=== PATIENT | female | born 1945 | race Caucasian/White ===

== ENCOUNTER 2018-09-22 11:43 | Inpatient (IN) | payer MEDICARE, OTHER ==
[~2018-09-22] VITALS: Ht 160 cm; Wt 89.0 kg
[2018-09-22] MEDS ORDERED: normal saline 1000ML IV soln IVB ONE (12:15)
[2018-09-22] MEDS ORDERED: ondansetron/PF 4mg/2ml inj IV ONE (12:15)
[2018-09-22] MEDS ORDERED: acetaminophen 325mg tablet PO ONE (12:15)
[2018-09-22 13:10] LABS: ALANINE AMINOTRANSFERASE 30 U/L (12-78); ALBUMIN 3.3 G/DL (3.4-5.0); ALBUMIN/GLOBULIN RATIO 0.7 (1.1-1.5); ALKALINE PHOSPHATASE 82 IU/L (46-116); ANION GAP 10 (8-16); ASPARTATE AMINO TRANSFERASE 25 U/L (10-37); BILIRUBIN,TOTAL 0.7 MG/DL (0.1-1.0); BLOOD UREA NITROGEN 30 MG/DL (7-18); BUN/CREATININE RATIO 32.6 (6.6-38.0); CALCIUM 10.3 MG/DL (8.5-10.1); CHLORIDE 100 MMOL/L (99-107); CREATININE 0.92 MG/DL (0.40-0.90); GLUCOSE 274 MG/DL (70-104); POTASSIUM 4.9 MMOL/L (3.5-5.1); SODIUM 136 MMOL/L (135-145); TOTAL CARBON DIOXIDE 26.1 MMOL/L (24-32); TOTAL PROTEIN 7.8 G/DL (6.4-8.2); eGFR 60 ML/MIN
[2018-09-22 13:11] LABS: MAGNESIUM 1.7 MG/DL (1.5-2.4); TROPONIN I < 0.04 NG/ML (0.0-0.05)
[2018-09-22] MEDS ORDERED: normal saline 1000ml 1,000 ML IV ONE (13:15)
[2018-09-22 13:21] LABS: INR 1.1 INR; PROTHROMBIN TIME 11.4 SECONDS (9.0-12.0)
[2018-09-22 13:46] LABS: BASOPHILS # (AUTO) 0.1 X10'3 (0-0.2); BASOPHILS % (AUTO) 1.1 % (0-1); EOSINOPHILS # (AUTO) 0.2 X10'3 (0-0.9); EOSINOPHILS % (AUTO) 1.8 % (0-6); HEMATOCRIT 25.8 % (35.0-45.0); HEMOGLOBIN 8.4 g/dl (12.0-16.0); LYMPHOCYTES % (AUTO) 8.1 % (21-51); MEAN CORPUSCULAR HEMOGLOBIN 30.6 PG (27.0-31.0); MEAN CORPUSCULAR HGB CONC 32.7 % (33.0-36.5); MEAN CORPUSCULAR VOLUME 93.5 FL (78-98); MONOCYTES # (AUTO) 0.8 X10'3 (0-0.9); MONOCYTES % (AUTO) 6.7 % (2-12); NEUTROPHILS # (AUTO) 10.3 X10'3 (1.8-7.7); NEUTROPHILS % (AUTO) 82.3 % (42-75); PLATELET COUNT 281 X10'3 (140-440); RED BLOOD COUNT 2.76 X10'6 (4.20-5.60); RED CELL DISTRIBUTION WIDTH 15.3 % (11.5-14.5); WHITE BLOOD COUNT 12.5 X10'3 (4.5-11.0)
[2018-09-22] MEDS ORDERED: HYDROcodone/acetaminophen 10/325mg tab PO ONE (15:00)
[2018-09-22 15:18] LABS: CLARITY,URINE CLEAR (Clear); COLOR,URINE YELLOW (Yellow); GLUCOSE, URINE 250 mg/dl (Neg); KETONES,URINE NEGATIVE (Neg); LEUKOCYTE ESTERASE ,URINE NEGATIVE (Neg); NITRITES, URINE NEGATIVE (Neg); OCCULT BLOOD,URINE NEGATIVE (Neg); PH,URINE 5.5 (4.8-8.0); PROTEIN,URINE NEGATIVE (Neg); UROBILINOGEN,URINE 0.2 E.U/dL (0.2-1.0)
[2018-09-22 15:31] LABS: UA COLLECTION TYPE CLN CATCH MIDSTREAM
[2018-09-22] MEDS: piperacillin/tazo 3.375gm/50ml 50 ML IV SCH ×2 (16:07→20:08)
[2018-09-22] MEDS ORDERED: pantoprazole 40 MG vial IV ONE (16:50)
[2018-09-22] MEDS: pantoprazole 40MG/NS 100ML BAG 100 ML IV SCH ×2 (17:04→23:50)
[2018-09-22] MEDS ORDERED: iohexol 350MG/ML 100ml bottle IV ONE (17:34)
[2018-09-22] MEDS ORDERED: morphine 4 MG/ML inj SYRINge IV ONE (17:45)
[2018-09-22] MEDS: MESSAGE TO NURSING PO SCH (18:00)
[2018-09-22] MEDS ORDERED: PANT40TA4 PO (18:30)
[2018-09-22] MEDS ORDERED: CARV3.12 PO (18:30)
[2018-09-22] MEDS ORDERED: AMLO5TAB16 PO (18:30)
[2018-09-22] MEDS ORDERED: HYDR-3972 PO (18:30)
[2018-09-22] MEDS ORDERED: LEVO75TA PO (18:30)
[2018-09-22] MEDS ORDERED: METF-950 PO (18:30)
[2018-09-22] MEDS ORDERED: ZOLP10TA5 PO (18:30)
[2018-09-22] MEDS: normal saline 1000ml 1,000 ML IV SCH (20:59)
[2018-09-22] MEDS ORDERED: HYDROmorphone 1 mg/ml syringe IV PRN (21:00)
[2018-09-22] MEDS ORDERED: mag hydrox/Alum hydrox/simeth 30ml oral suspension PO PRN (21:00)
[2018-09-22] MEDS ORDERED: bisacodyl 10mg suppository rectal RC PRN (21:00)
[2018-09-22] MEDS ORDERED: temazepam 15mg capsule PO PRN (21:00)
[2018-09-22] MEDS ORDERED: HYDROcodone/acetaminophen 10/325mg tab PO PRN (21:00)
[2018-09-22] MEDS ORDERED: magnesium hydroxide 30ml (MOM) UD suspension PO PRN (21:00)
[2018-09-22] MEDS ORDERED: diphenhydrAMINE 50 mg/ml inj IV PRN (21:00)
[2018-09-22] MEDS ORDERED: acetaminophen 325mg tablet PO PRN ×2 (21:00)
[2018-09-22] MEDS ORDERED: acetaminophen 650mg rectal suppository RC PRN (21:00)
[2018-09-22] MEDS: zolpidem 5mg tablet PO SCH (21:00)
[2018-09-22] MEDS ORDERED: diphenhydrAMINE 25mg capsule PO PRN (21:00)
[2018-09-22] MEDS ORDERED: metoclopramide 5 mg/ml inj IV PRN (21:00)
[2018-09-22] MEDS ORDERED: dextrose 50%-water 50ml dispensing syringe IV PRN ×2 (21:05)
[2018-09-22] MEDS ORDERED: insulin Lispro (HumaLOG) vial - multi-dose SQ SCH (21:05)
[2018-09-22] MEDS ORDERED: dextrose ORAL solution 15 GM/59 ML bottle PO PRN ×2 (21:05)
[2018-09-22] MEDS ORDERED: hydrALAZINE 20mg/ml inj. IV PRN (21:05)
[2018-09-22] MEDS ORDERED: glucagon, human recombinant 1mg kit SUBCUT PRN (21:05)
[2018-09-22] MEDS ORDERED: MESSAGE TO PHARMACY PO ONE (21:05)
[2018-09-22 21:21] LABS: LIPASE 109 U/L (73-393)
[2018-09-22 21:52] LABS: HEMOGLOBIN A1C 6.4 % (4.5-6.2)
[2018-09-22 21:58] LABS: INR 1.2 INR; PARTIAL THROMBOPLASTIN TIME 23 SECONDS (22-32); PROTHROMBIN TIME 11.6 SECONDS (9.0-12.0)
[2018-09-22 22:08] LABS: PHOSPHORUS 1.8 MG/DL (2.3-4.5)
[2018-09-22] MEDS: morphine 2 MG/ML inj. syringe IV PRN (23:05)
[2018-09-23] VITALS (13 sets, daily range): BP systolic 110–161; BP diastolic 43–75
[2018-09-23] MEDS: pantoprazole 40MG/NS 100ML BAG 100 ML IV SCH ×2 (01:00→04:13)
[2018-09-23] MEDS: piperacillin/tazo 3.375gm/50ml 50 ML IV SCH ×4 (02:57→21:26)
[2018-09-23] MEDS: ondansetron/PF 4mg/2ml inj IV PRN (04:08)
[2018-09-23] MEDS: morphine 2 MG/ML inj. syringe IV PRN (04:09)
[2018-09-23 05:29] LABS: ALANINE AMINOTRANSFERASE 21 U/L (12-78); ALBUMIN 2.8 G/DL (3.4-5.0); ALBUMIN/GLOBULIN RATIO 0.8 (1.1-1.5); ALKALINE PHOSPHATASE 59 IU/L (46-116); ANION GAP 8 (8-16); ASPARTATE AMINO TRANSFERASE 19 U/L (10-37); BILIRUBIN,TOTAL 0.4 MG/DL (0.1-1.0); BLOOD UREA NITROGEN 25 MG/DL (7-18); BUN/CREATININE RATIO 28.7 (6.6-38.0); CALCIUM 8.7 MG/DL (8.5-10.1); CHLORIDE 106 MMOL/L (99-107); CHOLESTEROL 143 MG/DL (0-200); CREATININE 0.87 MG/DL (0.40-0.90); GLUCOSE 134 MG/DL (70-104); HDL CHOLESTEROL 24 MG/DL (35-60); POTASSIUM 3.8 MMOL/L (3.5-5.1); SODIUM 140 MMOL/L (135-145); TOTAL CARBON DIOXIDE 25.8 MMOL/L (24-32); TOTAL PROTEIN 6.2 G/DL (6.4-8.2); TRIGLYCERIDES 177 MG/DL (20-135); eGFR 64 ML/MIN
[2018-09-23 06:13] LABS: BASOPHILS # (AUTO) 0.2 X10'3 (0-0.2); BASOPHILS % (AUTO) 1.3 % (0-1); EOSINOPHILS # (AUTO) 0.1 X10'3 (0-0.9); EOSINOPHILS % (AUTO) 0.4 % (0-6); HEMATOCRIT 22.2 % (35.0-45.0); HEMOGLOBIN 7.2 g/dl (12.0-16.0); LYMPHOCYTES # (AUTO) 2.3 X10'3 (1.1-4.8); LYMPHOCYTES % (AUTO) 15.5 % (21-51); MEAN CORPUSCULAR HEMOGLOBIN 30.2 PG (27.0-31.0); MEAN CORPUSCULAR HGB CONC 32.4 % (33.0-36.5); MEAN CORPUSCULAR VOLUME 93.2 FL (78-98); MONOCYTES # (AUTO) 1.7 X10'3 (0-0.9); MONOCYTES % (AUTO) 11.8 % (2-12); NEUTROPHILS # (AUTO) 10.4 X10'3 (1.8-7.7); PLATELET COUNT 265 X10'3 (140-440); RED BLOOD COUNT 2.38 X10'6 (4.20-5.60); RED CELL DISTRIBUTION WIDTH 15.3 % (11.5-14.5); WHITE BLOOD COUNT 14.7 X10'3 (4.5-11.0)
[2018-09-23 06:22] LABS: LDL CHOLESTEROL 94 MG/DL (50-100)
[2018-09-23] MEDS: normal saline 1000ml 1,000 ML IV SCH ×2 (06:59→17:39)
[2018-09-23 09:04] LABS: OCCULT BLOOD STOOL NEGATIVE (Neg)
[2018-09-23] MEDS: pantoprazole 40 MG vial IV SCH ×2 (09:10→21:26)
[2018-09-23] MEDS: HYDROcodone/acetaminophen 10/325mg tab PO PRN ×4 (09:10→21:32)
[2018-09-23] MEDS: Neutra Phos packet PO SCH ×3 (09:10→21:27)
[2018-09-23] MEDS: carVEDilol 3.125mg tablet PO SCH (09:10)
[2018-09-23] MEDS: amLODIPine 5mg tablet PO SCH (09:10)
[2018-09-23] MEDS: levoTHYROXINE 75mcg tablet PO SCH (09:10)
[2018-09-23] MEDS: docusate sod 100mg capsule PO SCH ×2 (09:10→21:27)
[2018-09-23] MEDS ORDERED: fentaNYL/PF 50MCG/1 ML 2ML syringe ONE (13:29)
[2018-09-23] MEDS ORDERED: MIDAZolam 5mg/5ml vial ONE (13:29)
[2018-09-23] MEDS ORDERED: LIDOcaine Viscous 15ml cup ONE (13:29)
[2018-09-23] MEDS: MESSAGE TO NURSING PO SCH (17:40)
[2018-09-23] MEDS: zolpidem 5mg tablet PO SCH (21:27)
[2018-09-24] VITALS (13 sets, daily range): BP systolic 94–136; BP diastolic 41–68
[2018-09-24] MEDS: piperacillin/tazo 3.375gm/50ml 50 ML IV SCH ×3 (02:31→15:33)
[2018-09-24] MEDS: HYDROcodone/acetaminophen 10/325mg tab PO PRN ×3 (02:57→17:59)
[2018-09-24] MEDS: normal saline 1000ml 1,000 ML IV SCH ×2 (02:59→15:57)
[2018-09-24 05:19] LABS: BASOPHILS # (AUTO) 0.1 X10'3 (0-0.2); BASOPHILS % (AUTO) 0.8 % (0-1); EOSINOPHILS # (AUTO) 0.2 X10'3 (0-0.9); EOSINOPHILS % (AUTO) 2.8 % (0-6); LYMPHOCYTES # (AUTO) 1.4 X10'3 (1.1-4.8); MEAN CORPUSCULAR HEMOGLOBIN 30.6 PG (27.0-31.0); MEAN CORPUSCULAR HGB CONC 32.8 % (33.0-36.5); MEAN CORPUSCULAR VOLUME 93.3 FL (78-98); MEAN PLATELET VOLUME 9.4 FL (7.4-10.4); MONOCYTES # (AUTO) 0.6 X10'3 (0-0.9); MONOCYTES % (AUTO) 6.8 % (2-12); NEUTROPHILS % (AUTO) 72.6 % (42-75); PLATELET COUNT 204 X10'3 (140-440); RED BLOOD COUNT 1.97 X10'6 (4.20-5.60); RED CELL DISTRIBUTION WIDTH 15.9 % (11.5-14.5); WHITE BLOOD COUNT 8.2 X10'3 (4.5-11.0)
[2018-09-24 05:40] LABS: HEMATOCRIT 18.4 % (35.0-45.0)
[2018-09-24 05:47] LABS: ALANINE AMINOTRANSFERASE 18 U/L (12-78); ALBUMIN 2.9 G/DL (3.4-5.0); ALKALINE PHOSPHATASE 52 IU/L (46-116); ANION GAP 7 (8-16); ASPARTATE AMINO TRANSFERASE 21 U/L (10-37); BILIRUBIN,TOTAL 0.4 MG/DL (0.1-1.0); BLOOD UREA NITROGEN 13 MG/DL (7-18); BUN/CREATININE RATIO 14.1 (6.6-38.0); CALCIUM 8.3 MG/DL (8.5-10.1); CHLORIDE 107 MMOL/L (99-107); CREATININE 0.92 MG/DL (0.40-0.90); GLUCOSE 116 MG/DL (70-104); POTASSIUM 3.9 MMOL/L (3.5-5.1); SODIUM 142 MMOL/L (135-145); TOTAL CARBON DIOXIDE 28.3 MMOL/L (24-32); TOTAL PROTEIN 5.9 G/DL (6.4-8.2); eGFR 60 ML/MIN
[2018-09-24] MEDS: levoTHYROXINE 75mcg tablet PO SCH (08:04)
[2018-09-24] MEDS: docusate sod 100mg capsule PO SCH ×2 (08:04→20:36)
[2018-09-24] MEDS: amLODIPine 5mg tablet PO SCH (08:04)
[2018-09-24] MEDS: pantoprazole 40 MG vial IV SCH ×2 (08:04→20:36)
[2018-09-24] MEDS: carVEDilol 3.125mg tablet PO SCH (08:04)
[2018-09-24] MEDS: Neutra Phos packet PO SCH ×3 (08:05→20:36)
[2018-09-24] MEDS: ondansetron/PF 4mg/2ml inj IV PRN (08:10)
[2018-09-24] MEDS ORDERED: ipratropium/albuterol 3ml nebule NEB PRN (19:25)
[2018-09-24] MEDS: zolpidem 5mg tablet PO SCH (20:36)
[2018-09-24] MEDS: lactobacillus rhamnosus 10,000 MMU CELLS/CAPSULE PO SCH (20:36)
[2018-09-25] VITALS: BP 110/55
[2018-09-25] MEDS: HYDROcodone/acetaminophen 10/325mg tab PO PRN ×4 (02:17→21:02)
[2018-09-25 05:23] LABS: BASOPHILS # (AUTO) 0.1 X10'3 (0-0.2); BASOPHILS % (AUTO) 0.8 % (0-1); EOSINOPHILS # (AUTO) 0.3 X10'3 (0-0.9); EOSINOPHILS % (AUTO) 2.3 % (0-6); HEMATOCRIT 24.8 % (35.0-45.0); HEMOGLOBIN 8.2 g/dl (12.0-16.0); LYMPHOCYTES # (AUTO) 1.5 X10'3 (1.1-4.8); LYMPHOCYTES % (AUTO) 12.6 % (21-51); MEAN CORPUSCULAR HEMOGLOBIN 30.5 PG (27.0-31.0); MEAN CORPUSCULAR VOLUME 92.4 FL (78-98); MEAN PLATELET VOLUME 10.1 FL (7.4-10.4); MONOCYTES % (AUTO) 8.2 % (2-12); NEUTROPHILS # (AUTO) 9.3 X10'3 (1.8-7.7); NEUTROPHILS % (AUTO) 76.1 % (42-75); PLATELET COUNT 206 X10'3 (140-440); RED BLOOD COUNT 2.69 X10'6 (4.20-5.60); WHITE BLOOD COUNT 12.3 X10'3 (4.5-11.0)
[2018-09-25 05:32] LABS: ALANINE AMINOTRANSFERASE 18 U/L (12-78); ALBUMIN 2.9 G/DL (3.4-5.0); ALBUMIN/GLOBULIN RATIO 0.9 (1.1-1.5); ALKALINE PHOSPHATASE 55 IU/L (46-116); ANION GAP 5 (8-16); ASPARTATE AMINO TRANSFERASE 22 U/L (10-37); BILIRUBIN,TOTAL 0.6 MG/DL (0.1-1.0); BLOOD UREA NITROGEN 7 MG/DL (7-18); BUN/CREATININE RATIO 8.6 (6.6-38.0); CALCIUM 8.2 MG/DL (8.5-10.1); CHLORIDE 105 MMOL/L (99-107); CREATININE 0.81 MG/DL (0.40-0.90); GLUCOSE 120 MG/DL (70-104); POTASSIUM 3.5 MMOL/L (3.5-5.1); SODIUM 140 MMOL/L (135-145); TOTAL CARBON DIOXIDE 29.7 MMOL/L (24-32); TOTAL PROTEIN 6.2 G/DL (6.4-8.2); eGFR 70 ML/MIN
[2018-09-25 07:21] VITALS: BP 125/48
[2018-09-25] MEDS: Neutra Phos packet PO SCH ×3 (07:59→21:01)
[2018-09-25] MEDS: levoTHYROXINE 75mcg tablet PO SCH (07:59)
[2018-09-25] MEDS: pantoprazole 40 MG vial IV SCH ×2 (07:59→21:00)
[2018-09-25] MEDS: lactobacillus rhamnosus 10,000 MMU CELLS/CAPSULE PO SCH ×2 (07:59→21:00)
[2018-09-25] MEDS: amLODIPine 5mg tablet PO SCH (07:59)
[2018-09-25] MEDS: carVEDilol 3.125mg tablet PO SCH (07:59)
[2018-09-25] MEDS: docusate sod 100mg capsule PO SCH ×2 (07:59→20:00)
[2018-09-25 11:39] VITALS: BP 135/58
[2018-09-25 12:59] LABS: BASOPHILS % (AUTO) 0.4 % (0-1); EOSINOPHILS # (AUTO) 0.2 X10'3 (0-0.9); HEMATOCRIT 25.4 % (35.0-45.0); HEMOGLOBIN 8.4 g/dl (12.0-16.0); LYMPHOCYTES # (AUTO) 1.8 X10'3 (1.1-4.8); LYMPHOCYTES % (AUTO) 17.3 % (21-51); MEAN CORPUSCULAR HEMOGLOBIN 30.6 PG (27.0-31.0); MEAN CORPUSCULAR VOLUME 92.6 FL (78-98); MEAN PLATELET VOLUME 9.1 FL (7.4-10.4); MONOCYTES # (AUTO) 1.3 X10'3 (0-0.9); MONOCYTES % (AUTO) 12.3 % (2-12); PLATELET COUNT 205 X10'3 (140-440); RED BLOOD COUNT 2.74 X10'6 (4.20-5.60); RED CELL DISTRIBUTION WIDTH 15.8 % (11.5-14.5); WHITE BLOOD COUNT 10.3 X10'3 (4.5-11.0)
[2018-09-25 19:00] VITALS: BP 136/56
[2018-09-25] MEDS ORDERED: zolpidem 5mg tablet PO PRN (20:45)
[2018-09-26] VITALS: BP 131/63
[2018-09-26] MEDS: HYDROcodone/acetaminophen 10/325mg tab PO PRN (04:33)
[2018-09-26 05:02] LABS: BASOPHILS # (AUTO) 0.2 X10'3 (0-0.2); BASOPHILS % (AUTO) 1.5 % (0-1); EOSINOPHILS # (AUTO) 0.2 X10'3 (0-0.9); EOSINOPHILS % (AUTO) 2.1 % (0-6); HEMATOCRIT 26.6 % (35.0-45.0); HEMOGLOBIN 8.7 g/dl (12.0-16.0); LYMPHOCYTES # (AUTO) 1.6 X10'3 (1.1-4.8); LYMPHOCYTES % (AUTO) 14.9 % (21-51); MEAN CORPUSCULAR HEMOGLOBIN 30.7 PG (27.0-31.0); MEAN CORPUSCULAR HGB CONC 32.8 % (33.0-36.5); MEAN CORPUSCULAR VOLUME 93.5 FL (78-98); MEAN PLATELET VOLUME 9.9 FL (7.4-10.4); MONOCYTES # (AUTO) 1.2 X10'3 (0-0.9); MONOCYTES % (AUTO) 11.3 % (2-12); NEUTROPHILS # (AUTO) 7.4 X10'3 (1.8-7.7); NEUTROPHILS % (AUTO) 70.2 % (42-75); PLATELET COUNT 201 X10'3 (140-440); RED BLOOD COUNT 2.85 X10'6 (4.20-5.60); RED CELL DISTRIBUTION WIDTH 15.7 % (11.5-14.5); WHITE BLOOD COUNT 10.6 X10'3 (4.5-11.0)
[2018-09-26 05:20] LABS: ALANINE AMINOTRANSFERASE 16 U/L (12-78); ALBUMIN 2.9 G/DL (3.4-5.0); ALBUMIN/GLOBULIN RATIO 0.9 (1.1-1.5); ALKALINE PHOSPHATASE 60 IU/L (46-116); ANION GAP 6 (8-16); ASPARTATE AMINO TRANSFERASE 18 U/L (10-37); BILIRUBIN,TOTAL 0.5 MG/DL (0.1-1.0); BLOOD UREA NITROGEN 4 MG/DL (7-18); BUN/CREATININE RATIO 5.3 (6.6-38.0); CALCIUM 8.5 MG/DL (8.5-10.1); CHLORIDE 103 MMOL/L (99-107); CREATININE 0.75 MG/DL (0.40-0.90); GLUCOSE 127 MG/DL (70-104); POTASSIUM 3.5 MMOL/L (3.5-5.1); SODIUM 141 MMOL/L (135-145); TOTAL CARBON DIOXIDE 32.3 MMOL/L (24-32); TOTAL PROTEIN 6.3 G/DL (6.4-8.2); eGFR 76 ML/MIN
[2018-09-26 07:00] VITALS: BP 147/84
[2018-09-26] MEDS: docusate sod 100mg capsule PO SCH (07:42)
[2018-09-26] MEDS: carVEDilol 3.125mg tablet PO SCH (07:42)
[2018-09-26] MEDS: amLODIPine 5mg tablet PO SCH (07:42)
[2018-09-26] MEDS: pantoprazole 40 MG vial IV SCH (07:42)
[2018-09-26] MEDS: levoTHYROXINE 75mcg tablet PO SCH (07:42)
[2018-09-26] MEDS: Neutra Phos packet PO SCH (07:43)
[2018-09-26] MEDS: lactobacillus rhamnosus 10,000 MMU CELLS/CAPSULE PO SCH (07:43)
[2018-09-26] MEDS ORDERED: PANT40TA4 PO (12:20)
== END 2018-09-26 13:17 | disposition home or self-care (01) | DRG 388 ==
LOC: ER 11:43 → ED HOLD 20:59 → SUR 3N 22:30
PROVIDERS: ADMIT Family Medicine; ATTEND Internal Medicine
PROC: 0DB68ZX Excision of Stomach, Via Natural or Artificial Opening Endoscopic, Diagnostic (ICD-10-PCS; principal; 2018-09-23)
PROC: 30233N1 Transfusion of Nonautologous Red Blood Cells into Peripheral Vein, Percutaneous Approach (ICD-10-PCS; 2018-09-24)
PROC: B4201ZZ Computerized Tomography (CT Scan) of Abdominal Aorta using Low Osmolar Contrast (ICD-10-PCS; 2018-09-24)
PROC: B4241ZZ Computerized Tomography (CT Scan) of Superior Mesenteric Artery using Low Osmolar Contrast (ICD-10-PCS; 2018-09-24)
PROC: B4281ZZ Computerized Tomography (CT Scan) of Bilateral Renal Arteries using Low Osmolar Contrast (ICD-10-PCS; 2018-09-24)
PROC: B4211ZZ Computerized Tomography (CT Scan) of Celiac Artery using Low Osmolar Contrast (ICD-10-PCS; 2018-09-24)
DX: K56.609 Unspecified intestinal obstruction, unspecified as to partial versus complete obstruction (principal); K25.4 Chronic or unspecified gastric ulcer with hemorrhage; D62 Acute posthemorrhagic anemia; E87.2 Acidosis; E83.39 Other disorders of phosphorus metabolism; K31.84 Gastroparesis; K44.9 Diaphragmatic hernia without obstruction or gangrene; E11.43 Type 2 diabetes mellitus with diabetic autonomic (poly)neuropathy; E78.00 Pure hypercholesterolemia, unspecified; I10 Essential (primary) hypertension; I25.10 Atherosclerotic heart disease of native coronary artery without angina pectoris; J44.9 Chronic obstructive pulmonary disease, unspecified; K21.9 Gastro-esophageal reflux disease without esophagitis; M79.7 Fibromyalgia; Z90.710 Acquired absence of both cervix and uterus; Z95.1 Presence of aortocoronary bypass graft; Z88.1 Allergy status to other antibiotic agents; Z88.8 Allergy status to other drugs, medicaments and biological substances; Z79.899 Other long term (current) drug therapy; Z79.84 Long term (current) use of oral hypoglycemic drugs; Z87.11 Personal history of peptic ulcer disease; Z87.891 Personal history of nicotine dependence
CPT/HCPCS: 36415; 43239; 71045; 74174; 74176; 76937; 80053; 80061; 81003; 82272; 82948; 83036; 83605; 83690; 83735; 83880; 84100; 84443; 84484; 85025; 85610; 85730; 86885; 86900; 86901; 86920; 87070; 88305; 88312; 88342; 92616; 93005; 93975; 94760; 96361; 96374; 96375; 99152; 99285; A4620; C9113; G0378; J2250; J2270; J2405; J2543; J3010; J7030; P9016; Q9967

== ENCOUNTER 2018-11-20 14:03 | Inpatient (IN) | payer MEDICARE, OTHER | END 2018-11-25 14:30 | disposition home or self-care (01) | LOC: ER 14:03 → ED HOLD 16:52 → SUR 3N 20:35 | DX: A41.9 Sepsis, unspecified organism (principal); K92.2 Gastrointestinal hemorrhage, unspecified; D64.9 Anemia, unspecified; E11.9 Type 2 diabetes mellitus without complications; E86.0 Dehydration ==

== ENCOUNTER 2018-12-04 13:45 | Emergency (ER) | payer MEDICARE, OTHER ==
[~2018-12-04] VITALS: Ht 160 cm; Wt 83.0 kg
[~2018-12-04 13:45] MED LIST: AMLO5TAB16 PO; ASCO500C15 PO; CARV3.12 PO; CHOL100046 PO; FERR325T28 PO; HYDR-3972 PO; LACT10SO32 PO; LEVO75TA PO; METF-950 PO; NITR0.4T48 SL; PANT40TA4 PO; SUCR1TAB34 PO; ZOLP10TA5 PO
[2018-12-04 14:34] LABS: BASOPHILS # (AUTO) 0.1 X10'3 (0-0.2); BASOPHILS % (AUTO) 0.9 % (0-1); EOSINOPHILS # (AUTO) 0.2 X10'3 (0-0.9); HEMATOCRIT 35.4 % (35.0-45.0); HEMOGLOBIN 11.4 g/dl (12.0-16.0); LYMPHOCYTES # (AUTO) 1.1 X10'3 (1.1-4.8); LYMPHOCYTES % (AUTO) 15.7 % (21-51); MEAN CORPUSCULAR HEMOGLOBIN 27.6 PG (27.0-31.0); MEAN CORPUSCULAR HGB CONC 32.1 g/dL (33.0-36.5); MEAN CORPUSCULAR VOLUME 86.2 FL (78-98); MEAN PLATELET VOLUME 9.5 FL (7.4-10.4); MONOCYTES # (AUTO) 0.7 X10'3 (0-0.9); MONOCYTES % (AUTO) 10.3 % (2-12); NEUTROPHILS # (AUTO) 4.9 X10'3 (1.8-7.7); NEUTROPHILS % (AUTO) 70.1 % (42-75); PLATELET COUNT 389 X10'3 (140-440); RED BLOOD COUNT 4.11 X10'6 (4.20-5.60); RED CELL DISTRIBUTION WIDTH 17.5 % (11.5-14.5)
[2018-12-04 14:38] LABS: ALANINE AMINOTRANSFERASE 43 U/L (12-78); ALBUMIN 3.5 G/DL (3.4-5.0); ALBUMIN/GLOBULIN RATIO 0.8 (1.1-1.5); ALKALINE PHOSPHATASE 73 IU/L (46-116); ANION GAP 11 (8-16); ASPARTATE AMINO TRANSFERASE 50 U/L (10-37); BILIRUBIN,TOTAL 0.4 MG/DL (0.1-1.0); BLOOD UREA NITROGEN 11 MG/DL (7-18); BUN/CREATININE RATIO 12.5 (6.6-38.0); CALCIUM 9.4 MG/DL (8.5-10.1); CHLORIDE 99 MMOL/L (99-107); CREATININE 0.88 MG/DL (0.40-0.90); GLUCOSE 224 MG/DL (70-104); INR 1.1 INR; PARTIAL THROMBOPLASTIN TIME 27 SECONDS (22-32); POTASSIUM 3.9 MMOL/L (3.5-5.1); PROTHROMBIN TIME 10.8 SECONDS (9.0-12.0); SODIUM 137 MMOL/L (135-145); TOTAL CARBON DIOXIDE 27.3 MMOL/L (24-32); TOTAL PROTEIN 7.8 G/DL (6.4-8.2); eGFR 63 ML/MIN
[2018-12-04] MEDS ORDERED: ondansetron/PF 4mg/2ml inj IV ONE (14:40)
[2018-12-04 15:17] LABS: LIPASE 112 U/L (73-393)
[2018-12-04] MEDS ORDERED: iohexol 350MG/ML 100ml bottle IV ONE (16:02)
[2018-12-04 18:44] VITALS: BP 122/64
[2018-12-05] MEDS ORDERED: MESSAGE TO NURSING PO NR (10:00)
== END 2018-12-04 18:47 | disposition home or self-care (01) ==
LOC: ER 13:47
DX: R06.02 Shortness of breath (principal); R42 Dizziness and giddiness; R11.0 Nausea; E78.00 Pure hypercholesterolemia, unspecified; J44.9 Chronic obstructive pulmonary disease, unspecified; K21.9 Gastro-esophageal reflux disease without esophagitis; E11.9 Type 2 diabetes mellitus without complications; Z90.710 Acquired absence of both cervix and uterus; Z98.890 Other specified postprocedural states; Z88.5 Allergy status to narcotic agent; Z88.1 Allergy status to other antibiotic agents; Z88.8 Allergy status to other drugs, medicaments and biological substances; Z79.84 Long term (current) use of oral hypoglycemic drugs; Z79.899 Other long term (current) drug therapy; Z87.891 Personal history of nicotine dependence
CPT/HCPCS: 36415; 71045; 71275; 80053; 83690; 84484; 85025; 85610; 85730; 93005; 96374; 99284; J2405; Q9967

== ENCOUNTER 2020-04-09 09:08 | Day surgery (SDC) | payer MEDICARE ==
[2020-04-08 12:48] LABS: BASOPHILS # (AUTO) 0.2 X10'3 (0-0.2); BASOPHILS % (AUTO) 1.8 % (0-1); EOSINOPHILS # (AUTO) 0.2 X10'3 (0-0.9); EOSINOPHILS % (AUTO) 2.3 % (0-6); HEMATOCRIT 40.4 % (35.0-45.0); HEMOGLOBIN 13.4 g/dl (12.0-16.0); LYMPHOCYTES # (AUTO) 1.8 X10'3 (1.1-4.8); LYMPHOCYTES % (AUTO) 18.5 % (21-51); MEAN CORPUSCULAR HEMOGLOBIN 31.7 PG (27.0-31.0); MEAN CORPUSCULAR HGB CONC 33.3 g/dL (33.0-36.5); MEAN CORPUSCULAR VOLUME 95.2 FL (78-98); MEAN PLATELET VOLUME 9.7 FL (7.4-10.4); MONOCYTES % (AUTO) 10.1 % (2-12); NEUTROPHILS # (AUTO) 6.5 X10'3 (1.8-7.7); NEUTROPHILS % (AUTO) 67.3 % (42-75); PLATELET COUNT 268 X10'3 (140-440); RED BLOOD COUNT 4.24 X10'6 (4.20-5.60); RED CELL DISTRIBUTION WIDTH 13.7 % (11.5-14.5); WHITE BLOOD COUNT 9.7 X10'3 (4.5-11.0)
[2020-04-08 13:01] LABS: PARTIAL THROMBOPLASTIN TIME 27 SECONDS (22-32)
[2020-04-08 13:04] LABS: ALBUMIN 3.5 G/DL (3.4-5.0); ANION GAP 8 (8-16); BLOOD UREA NITROGEN 9 MG/DL (7-18); BUN/CREATININE RATIO 10.1 (6.6-38.0); CALCIUM 9.5 MG/DL (8.5-10.1); CHLORIDE 104 MMOL/L (99-107); CREATININE 0.89 MG/DL (0.40-0.90); GLUCOSE 125 MG/DL (70-104); POTASSIUM 4.5 MMOL/L (3.5-5.1); SODIUM 141 MMOL/L (135-145); TOTAL CARBON DIOXIDE 28.8 MMOL/L (24-32); eGFR 62 ML/MIN
[~2020-04-09] VITALS: Ht 160 cm; Wt 89.3 kg
[2020-04-09] VITALS (12 sets, daily range): BP systolic 130–176; BP diastolic 56–99
[~2020-04-09 09:08] MED LIST changes: -FERR325T28 PO
[2020-04-09] MEDS ORDERED: normal saline 1,000 ML IV SCH (09:25)
[2020-04-09] MEDS ORDERED: sodium bicarbonate (8.4%) inj. 150 ML in dextrose 5%-water 1,000 ML IV ONE (09:25)
[2020-04-09] MEDS ORDERED: LORazepam 0.5 MG tablet PO PRN (09:25)
[2020-04-09] MEDS ORDERED: diphenhydrAMINE 25mg capsule PO PRN (09:25)
[2020-04-09] MEDS ORDERED: iohexol 350 MG/ML 50ML vial IV ONE ×2 (09:59→11:05)
[2020-04-09] MEDS ORDERED: LIDOcaine 1% (10mg/ml)w/preservative injection 20ml MDV ONE (09:59)
[2020-04-09] MEDS ORDERED: iohexol 350MG/ML 100ml bottle IV ONE (09:59)
[2020-04-09] MEDS ORDERED: fentaNYL/PF 50MCG/1 ML 2ML syringe ONE (09:59)
[2020-04-09] MEDS ORDERED: heparin 1,000unit/ml 10ml vial 10 ML ONE (09:59)
[2020-04-09] MEDS ORDERED: midazolam 2 mg/2 ml injection ONE (09:59)
[2020-04-09] MEDS ORDERED: nitroGLYCERIN-Tridil 50MG/D5W 250 ML IV ONE (10:00)
[2020-04-09] MEDS ORDERED: LMFO1TAB PO (10:25)
[2020-04-09] MEDS ORDERED: PANT20TA2 PO (10:25)
[2020-04-09] MEDS ORDERED: CHOL400T57 PO (10:25)
[2020-04-09] MEDS ORDERED: HYDR-4353 PO (10:25)
[2020-04-09] MEDS ORDERED: ONDA8TAB6 PO (10:25)
[2020-04-09] MEDS ORDERED: THY60T PO (10:25)
[2020-04-09 11:56] LABS: ISTAT HGB ART 12.9 g/dl (12.0-16.0); ISTAT Hct ART 38 %PCV (35-48); ISTAT O2 SATURATION ARTERIAL 92 % (95-98); ISTAT SOURCE ART
[2020-04-09] MEDS ORDERED: proCHLORperazine 10 MG/2 ml inj IV PRN (12:15)
[2020-04-09] MEDS ORDERED: ondansetron/PF 4mg/2ml inj IV PRN (12:15)
[2020-04-09] MEDS ORDERED: HYDROcodone/acetaminophen 5mg/325mg tablet PO PRN (12:15)
--- NOTE | 2020-04-09 12:30 | NUR ---
clayton cath placed per MD orders
[2020-04-09] MEDS: HYDROcodone/acetaminophen 10/325mg tab PO PRN ×2 (13:00→16:32)
[2020-04-09] MEDS ORDERED: morphine 2 MG/ML inj. syringe IV ONE (17:40)
== END 2020-04-09 19:00 | disposition home or self-care (01) ==
LOC: SSTAY O 09:08
PROVIDERS: ATTEND Internal Medicine Cardiovascular Disease
DX: R94.39 Abnormal result of other cardiovascular function study (principal); I25.10 Atherosclerotic heart disease of native coronary artery without angina pectoris; E11.9 Type 2 diabetes mellitus without complications; I10 Essential (primary) hypertension; E78.5 Hyperlipidemia, unspecified; E66.9 Obesity, unspecified; Z68.34 Body mass index [BMI] 34.0-34.9, adult; Z87.891 Personal history of nicotine dependence; Z95.5 Presence of coronary angioplasty implant and graft; Z79.01 Long term (current) use of anticoagulants; Z79.899 Other long term (current) drug therapy
CPT/HCPCS: 36415; 76937; 80048; 82803; 85014; 85025; 85610; 85730; 93005; 93461; 93567; C1769; J1644; J2001; J2250; J2270; J3010; J7030; Q9967; 99152; 99153; A6258; J3490

== ENCOUNTER 2022-03-09 06:09 | Emergency (ER) | payer MEDICARE ==
[~2022-03-09] VITALS: Ht 162.6 cm; Wt 87.3 kg
[~2022-03-09 06:09] MED LIST changes: -ASCO500C15 PO; -CHOL100046 PO; +CHOL400T57 PO; +HYDR-4353 PO; -LACT10SO32 PO; +LMFO1TAB PO; +METF-1203 PO; -METF-950 PO; +ONDA8TAB6 PO; +PANT20TA2 PO; -PANT40TA4 PO; -SUCR1TAB34 PO; +THY60T PO; -ZOLP10TA5 PO
[2022-03-09 06:13] VITALS: BP 162/77
[2022-03-09] MEDS ORDERED: LINA145C PO (08:10)
[2022-03-09] MEDS ORDERED: magnesium citrate 296ml oral solution PO ONE (08:10)
== END 2022-03-09 08:35 | disposition home or self-care (01) ==
LOC: ER 06:09
DX: K59.00 Constipation, unspecified (principal); E78.00 Pure hypercholesterolemia, unspecified; J44.9 Chronic obstructive pulmonary disease, unspecified; K21.9 Gastro-esophageal reflux disease without esophagitis; E11.9 Type 2 diabetes mellitus without complications; Z88.8 Allergy status to other drugs, medicaments and biological substances; Z88.1 Allergy status to other antibiotic agents; Z79.899 Other long term (current) drug therapy
CPT/HCPCS: 99284

== ENCOUNTER 2022-10-12 15:04 | Emergency (ER) | payer MEDICARE ==
[~2022-10-12] VITALS: Ht 161.3 cm; Wt 85.9 kg
[~2022-10-12 15:04] MED LIST changes: -CARV3.12 PO; +CARV6.253 PO; -CHOL400T57 PO; +CYAN500T71 PO; -HYDR-3972 PO; -HYDR-4353 PO; -LMFO1TAB PO; -ONDA8TAB6 PO; +PANT-47 PO; -PANT20TA2 PO; -THY60T PO; +VITD400T PO
[2022-10-12 16:07] LABS: CLARITY,URINE SLIGHTLY CLOUDY (Clear); COLOR,URINE STRAW (Yellow); GLUCOSE, URINE 500 mg/dl (Neg); KETONES,URINE NEGATIVE (Neg); LEUKOCYTE ESTERASE ,URINE NEGATIVE (Neg); NITRITES, URINE NEGATIVE (Neg); OCCULT BLOOD,URINE NEGATIVE (Neg); PROTEIN,URINE NEGATIVE (Neg); UROBILINOGEN,URINE 0.2 E.U/dL (0.2-1.0)
[2022-10-12 16:08] LABS: UA COLLECTION TYPE CLN CATCH MIDSTREAM
[2022-10-12 16:20] LABS: SQUAMOUS EPITHELIAL CELL,UR FEW /LPF (FEW)
[2022-10-12 16:21] LABS: BASOPHILS # (AUTO) 0.1 X10'3 (0-0.2); BASOPHILS % (AUTO) 0.5 % (0-1); EOSINOPHILS # (AUTO) 0.2 X10'3 (0-0.9); EOSINOPHILS % (AUTO) 1.9 % (0-6); HEMATOCRIT 40.4 % (35.0-45.0); HEMOGLOBIN 13.3 g/dl (12.0-16.0); LYMPHOCYTES % (AUTO) 8.3 % (21-51); MEAN CORPUSCULAR HEMOGLOBIN 30.9 PG (27.0-31.0); MEAN CORPUSCULAR HGB CONC 32.8 g/dL (33.0-36.5); MEAN CORPUSCULAR VOLUME 94.1 FL (78-98); MEAN PLATELET VOLUME 9.5 FL (7.4-10.4); MONOCYTES # (AUTO) 1.5 X10'3 (0-0.9); MONOCYTES % (AUTO) 12.4 % (2-12); NEUTROPHILS # (AUTO) 9.6 X10'3 (1.8-7.7); NEUTROPHILS % (AUTO) 76.9 % (42-75); PLATELET COUNT 230 X10'3 (140-440); RED CELL DISTRIBUTION WIDTH 15.2 % (11.5-14.5); WHITE BLOOD COUNT 12.5 X10'3 (4.5-11.0)
[2022-10-12 16:21] LABS: BACTERIA,URINE FEW /HPF (Neg); RBC,URINE NONE SEEN /HPF (0-2); WBC,URINE 0-4 /HPF (0-4)
[2022-10-12 16:34] LABS: ALANINE AMINOTRANSFERASE 28 U/L (12-78); ALBUMIN 3.5 G/DL (3.4-5.0); ALBUMIN/GLOBULIN RATIO 0.8 (1.1-1.5); ALKALINE PHOSPHATASE 79 IU/L (46-116); ANION GAP 6 (8-16); ASPARTATE AMINO TRANSFERASE 30 U/L (10-37); BILIRUBIN,TOTAL 0.8 MG/DL (0.1-1.0); BLOOD UREA NITROGEN 6 MG/DL (7-18); BUN/CREATININE RATIO 7.5 (6.6-38.0); CALCIUM 9.5 MG/DL (8.5-10.1); CHLORIDE 97 MMOL/L (99-107); GLUCOSE 255 MG/DL (70-104); LIPASE 62 U/L (73-393); SODIUM 132 MMOL/L (135-145); TOTAL CARBON DIOXIDE 29.5 MMOL/L (24-32); TOTAL PROTEIN 8.1 G/DL (6.4-8.2); eGFR 70 ML/MIN
[2022-10-12] MEDS ORDERED: celeCOXIB 100mg capsule PO ONE (21:05)
[2022-10-12] MEDS ORDERED: normal saline 1000ML IV soln IVB ONE (21:05)
[2022-10-12] MEDS ORDERED: morphine 2 MG/ML inj. syringe IV PRN (21:05)
[2022-10-12] MEDS ORDERED: ondansetron/PF 4mg/2ml inj IV ONE (21:05)
[2022-10-12] MEDS ORDERED: celeCOXIB 100mg capsule PO SCH (21:05)
[2022-10-12] MEDS ORDERED: iohexol 300mg/ml 100ml inj. ONE (22:16)
[2022-10-12] MEDS ORDERED: HYDROcodone/acetaminophen 5mg/325mg tablet PO ONE (23:20)
[2022-10-12 23:34] VITALS: BP 169/52
== END 2022-10-13 01:20 | disposition home or self-care (01) ==
LOC: ER 15:06
DX: R10.9 Unspecified abdominal pain (principal); E78.00 Pure hypercholesterolemia, unspecified; J44.9 Chronic obstructive pulmonary disease, unspecified; K21.9 Gastro-esophageal reflux disease without esophagitis; E11.9 Type 2 diabetes mellitus without complications; Z88.5 Allergy status to narcotic agent; Z88.8 Allergy status to other drugs, medicaments and biological substances; Z91.041 Radiographic dye allergy status; Z88.1 Allergy status to other antibiotic agents
CPT/HCPCS: 74022; 74177; 80053; 81001; 83690; 85025; 99285; J3490; J7030; Q9967

== ENCOUNTER 2023-11-18 14:26 | Emergency (ER) | payer MEDICARE, SELFPAY ==
[~2023-11-18] VITALS: Ht 160 cm; Wt 85.0 kg
[2023-11-18] MEDS ORDERED: ipratropium/albuterol 3ml nebule NEB STA (17:13)
[2023-11-18 17:34] VITALS: PULSE 70; PULSE 77; RESP 18; RESP 20; O2SAT 100
[2023-11-18 17:41] LABS: ALANINE AMINOTRANSFERASE 31 U/L (12-78); ALBUMIN 3.5 G/DL (3.4-5.0); ALBUMIN/GLOBULIN RATIO 0.7 (1.1-1.5); ALKALINE PHOSPHATASE 76 IU/L (46-116); ASPARTATE AMINO TRANSFERASE 43 U/L (10-37); BASOPHILS # (AUTO) 0.1 X10'3 (0-0.2); BASOPHILS % (AUTO) 0.9 % (0-1); BILIRUBIN,TOTAL 0.6 MG/DL (0.1-1.0); BLOOD UREA NITROGEN 8 MG/DL (7-18); BUN/CREATININE RATIO 10.3 (10.0-20.0); CALCIUM 9.7 MG/DL (8.5-10.1); CHLORIDE 99 MMOL/L (99-107); CREATININE 0.78 MG/DL (0.40-0.90); EOSINOPHILS # (AUTO) 0.2 X10'3 (0-0.9); GLUCOSE 179 MG/DL (70-104); HEMOGLOBIN 12.6 g/dl (12.0-16.0); LYMPHOCYTES # (AUTO) 1.9 X10'3 (1.1-4.8); LYMPHOCYTES % (AUTO) 17.1 % (21-51); MEAN CORPUSCULAR HEMOGLOBIN 29.7 PG (27.0-31.0); MEAN CORPUSCULAR HGB CONC 32.3 g/dL (33.0-36.5); MEAN CORPUSCULAR VOLUME 91.7 FL (78-98); MEAN PLATELET VOLUME 9.8 FL (7.4-10.4); MONOCYTES # (AUTO) 0.9 X10'3 (0-0.9); MONOCYTES % (AUTO) 7.8 % (2-12); NEUTROPHILS # (AUTO) 8.1 X10'3 (1.8-7.7); NEUTROPHILS % (AUTO) 72.2 % (42-75); PLATELET COUNT 218 X10'3 (140-440); POTASSIUM 3.9 MMOL/L (3.5-5.1); RED BLOOD COUNT 4.25 X10'6 (4.20-5.60); RED CELL DISTRIBUTION WIDTH 17.6 % (11.5-14.5); SODIUM 138 MMOL/L (135-145); TOTAL PROTEIN 8.4 G/DL (6.4-8.2); WHITE BLOOD COUNT 11.2 X10'3 (4.5-11.0); eCRCL 50 ML/MIN; eGFR 72 ML/MIN
[2023-11-18 17:47] LABS: ANION GAP 9 (8-16); TOTAL CARBON DIOXIDE 30.5 MMOL/L (24-32)
[2023-11-18] MEDS ORDERED: ALB0.5UD IH (18:00)
[2023-11-18] MEDS ORDERED: NEBU-237 (18:02)
[2023-11-18 18:47] VITALS: BP 110/70; PULSE 68; RESP 16; TEMP 98.4; O2SAT 97
== END 2023-11-18 18:49 | disposition home or self-care (01) ==
LOC: ER 14:27
DX: J40 Bronchitis, not specified as acute or chronic (principal); I11.0 Hypertensive heart disease with heart failure; E78.00 Pure hypercholesterolemia, unspecified; K21.9 Gastro-esophageal reflux disease without esophagitis; E11.9 Type 2 diabetes mellitus without complications; Z88.8 Allergy status to other drugs, medicaments and biological substances; Z88.1 Allergy status to other antibiotic agents; Z79.899 Other long term (current) drug therapy; Z88.5 Allergy status to narcotic agent; Z79.1 Long term (current) use of non-steroidal anti-inflammatories (NSAID); Z79.2 Long term (current) use of antibiotics
CPT/HCPCS: 36415; 71045; 80053; 84145; 85025; 94760; 99284

== ENCOUNTER 2023-11-18 20:53 | Emergency (ER) | payer MEDICARE ==
[~2023-11-18] VITALS: Ht 160 cm; Wt 68.2 kg
[~2023-11-18 20:53] MED LIST changes: +ALB0.5UD IH; +NEBU-237
[2023-11-18 20:58] VITALS: BP 175/87; TEMP 98
[2023-11-18] MEDS ORDERED: albuterol 2.5 MG/3 ML nebule NEB ONE (21:05)
[2023-11-18 21:18] VITALS: PULSE 74; RESP 16; O2SAT 95
[2023-11-18 21:24] VITALS: PULSE 93; RESP 16; O2SAT 93
== END 2023-11-18 21:30 | disposition home or self-care (01) ==
LOC: ER 20:54
DX: R05.9 Cough, unspecified (principal); E78.00 Pure hypercholesterolemia, unspecified; I11.0 Hypertensive heart disease with heart failure; K21.9 Gastro-esophageal reflux disease without esophagitis; E11.9 Type 2 diabetes mellitus without complications; Z88.8 Allergy status to other drugs, medicaments and biological substances; Z88.1 Allergy status to other antibiotic agents; Z79.899 Other long term (current) drug therapy
CPT/HCPCS: 94640; 94760; 99283

== ENCOUNTER 2024-10-21 21:54 | Emergency (ER) | payer MEDICARE ==
[~2024-10-21] VITALS: Ht 167.6 cm; Wt 79.0 kg
[~2024-10-21 21:54] MED LIST changes: -ALB0.5UD IH
[2024-10-21 22:45] VITALS: BP 156/64; PULSE 66; RESP 16; TEMP 98.2; O2SAT 95
== END 2024-10-21 23:03 | disposition home or self-care (01) ==
LOC: ER 21:55
DX: S52.591A Other fractures of lower end of right radius, initial encounter for closed fracture (principal); I25.10 Atherosclerotic heart disease of native coronary artery without angina pectoris; E78.00 Pure hypercholesterolemia, unspecified; E11.9 Type 2 diabetes mellitus without complications; J44.9 Chronic obstructive pulmonary disease, unspecified; K21.9 Gastro-esophageal reflux disease without esophagitis; M79.7 Fibromyalgia; Z95.1 Presence of aortocoronary bypass graft; Z90.710 Acquired absence of both cervix and uterus; Z88.1 Allergy status to other antibiotic agents; Z88.8 Allergy status to other drugs, medicaments and biological substances; Z79.84 Long term (current) use of oral hypoglycemic drugs; Z79.899 Other long term (current) drug therapy; W18.39XA Other fall on same level, initial encounter; Y93.89 Activity, other specified; Y92.89 Other specified places as the place of occurrence of the external cause; Y99.8 Other external cause status
CPT/HCPCS: 29125; 73110; 99284

== ENCOUNTER 2024-11-23 06:04 | Emergency (ER) | payer MEDICARE ==
[~2024-11-23] VITALS: Ht 162.6 cm; Wt 68.0 kg
[2024-11-23 06:45] VITALS: BP 158/86; PULSE 85; TEMP 98.5; O2SAT 95
[2024-11-23 07:09] LABS: BASOPHILS # (AUTO) 0.1 X10'3 (0-0.2); BASOPHILS % (AUTO) 0.3 % (0-1); EOSINOPHILS # (AUTO) 0.2 X10'3 (0-0.9); EOSINOPHILS % (AUTO) 1.1 % (0-6); HEMATOCRIT 38.6 % (35.0-45.0); HEMOGLOBIN 13.1 g/dl (12.0-16.0); LYMPHOCYTES # (AUTO) 1.6 X10'3 (1.1-4.8); LYMPHOCYTES % (AUTO) 10.4 % (21-51); MEAN CORPUSCULAR HEMOGLOBIN 31.2 PG (27.0-31.0); MEAN CORPUSCULAR HGB CONC 33.8 g/dL (33.0-36.5); MEAN CORPUSCULAR VOLUME 92.3 FL (78-98); MEAN PLATELET VOLUME 9.5 FL (7.4-10.4); MONOCYTES # (AUTO) 1.5 X10'3 (0-0.9); MONOCYTES % (AUTO) 9.7 % (2-12); NEUTROPHILS # (AUTO) 12.2 X10'3 (1.8-7.7); NEUTROPHILS % (AUTO) 78.5 % (42-75); PLATELET COUNT 252 X10'3 (140-440); RED BLOOD COUNT 4.19 X10'6 (4.20-5.60); WHITE BLOOD COUNT 15.5 X10'3 (4.5-11.0)
[2024-11-23 07:25] LABS: ALANINE AMINOTRANSFERASE 18 U/L (12-78); ALBUMIN 3.6 G/DL (3.4-5.0); ALBUMIN/GLOBULIN RATIO 0.8 (1.1-1.5); ALKALINE PHOSPHATASE 73 IU/L (46-116); ANION GAP 9 (8-16); ASPARTATE AMINO TRANSFERASE 19 U/L (10-37); BLOOD UREA NITROGEN 6 MG/DL (7-18); BUN/CREATININE RATIO 8.5 (10.0-20.0); CHLORIDE 98 MMOL/L (99-107); CREATININE 0.71 MG/DL (0.40-0.90); GLUCOSE 179 MG/DL (70-104); POTASSIUM 3.7 MMOL/L (3.5-5.1); PRO BRAIN NATRIURETIC PEPTIDE 144 PG/ML (0-450); SODIUM 135 MMOL/L (135-145); TOTAL CARBON DIOXIDE 27.9 MMOL/L (24-32); TOTAL PROTEIN 8.1 G/DL (6.4-8.2); eCRCL 56 ML/MIN; eGFR 80 ML/MIN
[2024-11-23] MEDS ORDERED: iohexol 300mg/ml 100ml inj. ONE (08:41)
[2024-11-23] MEDS: morphine 2 MG/ML inj. syringe IV ONE (09:54)
[2024-11-23] MEDS: normal saline 1000ML IV soln IVB ONE (09:55)
[2024-11-23 10:54] VITALS: RESP 16
[2024-11-23 12:04] LABS: BILIRUBIN,URINE NEGATIVE (Neg); CLARITY,URINE CLEAR (Clear); COLOR,URINE YELLOW (Yellow); GLUCOSE, URINE NEGATIVE (Neg); KETONES,URINE NEGATIVE (Neg); LEUKOCYTE ESTERASE ,URINE NEGATIVE (Neg); NITRITES, URINE NEGATIVE (Neg); OCCULT BLOOD,URINE NEGATIVE (Neg); PH,URINE 7.5 (4.8-8.0); PROTEIN,URINE NEGATIVE (Neg); UROBILINOGEN,URINE 0.2 E.U/dL (0.2-1.0)
[2024-11-23 12:13] LABS: UA COLLECTION TYPE NON-SPECIFIED
[2024-11-23] MEDS ORDERED: DICY10CA88 PO (12:41)
[2024-11-23] MEDS: dicyclomine 10 MG capsule PO ONE (12:49)
== END 2024-11-23 14:10 | disposition home or self-care (01) ==
LOC: ER 06:05
DX: R10.31 Right lower quadrant pain (principal); I25.10 Atherosclerotic heart disease of native coronary artery without angina pectoris; E78.00 Pure hypercholesterolemia, unspecified; E11.9 Type 2 diabetes mellitus without complications; J44.9 Chronic obstructive pulmonary disease, unspecified; K21.9 Gastro-esophageal reflux disease without esophagitis; M79.7 Fibromyalgia; Z95.1 Presence of aortocoronary bypass graft; Z90.710 Acquired absence of both cervix and uterus; Z88.1 Allergy status to other antibiotic agents; Z88.8 Allergy status to other drugs, medicaments and biological substances; Z79.84 Long term (current) use of oral hypoglycemic drugs; Z79.899 Other long term (current) drug therapy
CPT/HCPCS: 36415; 71045; 74177; 80053; 81003; 83880; 84484; 85025; 93005; 96361; 96374; 99285; J2270; J7030; Q9967